=== PATIENT | male | born 1995 | race Caucasian/White ===

== ENCOUNTER 2019-09-21 13:19 | Emergency (ER) | payer MEDICAID ==
[~2019-09-21] VITALS: Ht 167.6 cm; Wt 77.3 kg
[2019-09-21 13:37] VITALS: BP 120/75
== END 2019-09-21 14:44 | disposition home or self-care (01) ==
LOC: EMS 13:22
DX: Z03.818 Encounter for observation for suspected exposure to other biological agents ruled out (principal); R05 Cough; R50.9 Fever, unspecified; J02.9 Acute pharyngitis, unspecified; R09.81 Nasal congestion
CPT/HCPCS: 99283; U0003

== ENCOUNTER 2023-11-20 01:31 | Emergency (ER) | payer MEDICAID, OTHER ==
[~2023-11-20] VITALS: Ht 167.6 cm; Wt 84.1 kg
[2023-11-20 02:35] LABS: BASOPHILS % (AUTO) 0.6 % (0.0-2.0); EOSINOPHILS % (AUTO) 2.2 % (1.0-6.0); HEMATOCRIT 44.2 % (41-53); HEMOGLOBIN 15.1 g/dL (13.5-17.5); LYMPHOCYTES # (AUTO) 1.4 K/uL (1.0-4.8); LYMPHOCYTES % (AUTO) 20.5 % (22.0-44.0); MEAN CORPUSCULAR HGB CONC 34.1 G/dL (31.0-37.0); MEAN CORPUSCULAR VOLUME 91 fL (80-100); MONOCYTES # (AUTO) 0.4 K/uL (0.1-1.0); MONOCYTES % (AUTO) 5.4 % (2.0-9.0); NEUTROPHILS % (AUTO) 71.3 % (40.0-70.0); PLATELET COUNT (AUTO) 286 K/uL (150-450); RED BLOOD CELL COUNT(AUTO) 4.87 MIL/uL (4.50-5.90); RED CELL DISTRIBUTION WIDTH 13.8 % (11.5-14.5)
[2023-11-20 02:43] LABS: ANION GAP 14 mmol/L (8-16); CALCIUM, TOTAL 8.7 mg/dL (8.8-10.5); CARBON DIOXIDE 24 mmol/L (22-29); CHLORIDE 101 mmol/L (98-107); CREATININE 0.85 mg/dL (0.60-1.30); GLOMERULAR FILTR. RATE CALC > 60 mL/min (>60); GLUCOSE,RANDOM 106 mg/dL (70-110); POTASSIUM 3.9 mmol/L (3.5-5.1); SODIUM SERUM 139 mmol/L (136-145); UREA NITROGEN, BLOOD 7 mg/dL (7-18)
[2023-11-20 02:54] LABS: ALCOHOL, BLOOD (SERUM) 224 mg/dL (0-10)
[2023-11-20 03:56] LABS: ALCOHOL, URINE DRUG SCREEN POSITIVE (NEGATIVE); AMPHET/METH SCREEN,URINE NEGATIVE (NEGATIVE); BARBITURATE SCREEN, URINE NEGATIVE (NEGATIVE); BENZODIAZEPINES SCREEN,URINE NEGATIVE (NEGATIVE); CANNABINOID SCREEN,URINE NEGATIVE (NEGATIVE); COCAINE SCREEN,URINE NEGATIVE (NEGATIVE); METHADONE SCREEN, URINE NEGATIVE (NEGATIVE); OPIATE SCREEN,URINE NEGATIVE (NEGATIVE); PHENCYCLIDINE SCREEN,URINE NEGATIVE (NEGATIVE)
[2023-11-20 04:07] LABS: PH,URINE DRUG SCREEN 5.5 (5.0-8.0)
[2023-11-20 08:28] VITALS: BP 116/70; PULSE 97; RESP 16; TEMP 98.1; O2SAT 99
== END 2023-11-20 10:02 ==
LOC: EMS 01:31
DX: F32.A Depression, unspecified (principal); F10.129 Alcohol abuse with intoxication, unspecified; Y90.9 Presence of alcohol in blood, level not specified
CPT/HCPCS: 99285; 80048; 85025; 36415; 80307; G0480

== ENCOUNTER 2023-12-01 02:11 | Inpatient (IN) | payer MEDICAID, OTHER ==
[~2023-12-01] VITALS: Ht 167.6 cm; Wt 83.9 kg
[2023-12-01 04:23] LABS: BASOPHILS % (AUTO) 1.1 % (0.0-2.0); EOSINOPHILS % (AUTO) 1.1 % (1.0-6.0); HEMATOCRIT 43.7 % (41-53); HEMOGLOBIN 14.5 g/dL (13.5-17.5); LYMPHOCYTES # (AUTO) 1.9 K/uL (1.0-4.8); LYMPHOCYTES % (AUTO) 27.3 % (22.0-44.0); MEAN CORPUSCULAR HEMOGLOBIN 29.9 pg (26.0-34.0); MEAN CORPUSCULAR HGB CONC 33.2 G/dL (31.0-37.0); MEAN CORPUSCULAR VOLUME 90 fL (80-100); MONOCYTES # (AUTO) 0.4 K/uL (0.1-1.0); MONOCYTES % (AUTO) 5.1 % (2.0-9.0); NEUTROPHILS # (AUTO) 4.6 K/uL (1.8-7.7); NEUTROPHILS % (AUTO) 65.4 % (40.0-70.0); PLATELET COUNT (AUTO) 248 K/uL (150-450); RED BLOOD CELL COUNT(AUTO) 4.86 MIL/uL (4.50-5.90); RED CELL DISTRIBUTION WIDTH 13.8 % (11.5-14.5)
[2023-12-01 04:27] LABS: ANION GAP 14 mmol/L (8-16); CALCIUM, TOTAL 8.2 mg/dL (8.8-10.5); CARBON DIOXIDE 23 mmol/L (22-29); CHLORIDE 102 mmol/L (98-107); CREATININE 0.74 mg/dL (0.60-1.30); GLOMERULAR FILTR. RATE CALC > 60 mL/min (>60); GLUCOSE,RANDOM 107 mg/dL (70-110); POTASSIUM 3.8 mmol/L (3.5-5.1); SODIUM SERUM 139 mmol/L (136-145); UREA NITROGEN, BLOOD 10 mg/dL (7-18)
[2023-12-01 04:34] LABS: ALCOHOL, BLOOD (SERUM) 211 mg/dL (0-10)
[2023-12-01 06:28] LABS: COVID AG,FIA SOURCE NASAL SWAB
[2023-12-01 06:32] LABS: PH,URINE DRUG SCREEN 5.5 (5.0-8.0)
[2023-12-01 06:39] LABS: ALCOHOL, URINE DRUG SCREEN POSITIVE (NEGATIVE); AMPHET/METH SCREEN,URINE NEGATIVE (NEGATIVE); BARBITURATE SCREEN, URINE NEGATIVE (NEGATIVE); BENZODIAZEPINES SCREEN,URINE NEGATIVE (NEGATIVE); CANNABINOID SCREEN,URINE NEGATIVE (NEGATIVE); COCAINE SCREEN,URINE NEGATIVE (NEGATIVE); METHADONE SCREEN, URINE NEGATIVE (NEGATIVE); OPIATE SCREEN,URINE NEGATIVE (NEGATIVE); PHENCYCLIDINE SCREEN,URINE NEGATIVE (NEGATIVE)
[2023-12-01 06:51] LABS: SARS-COV2 (COVID) ANTIGEN,FIA Negative (Negative)
[2023-12-01 11:41] VITALS: O2SAT 100
[2023-12-01] MEDS ORDERED: HALOPERIDOL 5 MG TABLET PO PRN (12:45)
[2023-12-01] MEDS ORDERED: ZOLPIDEM TARTRATE 10 MG TABLET PO PRN (12:45)
[2023-12-01] MEDS ORDERED: LORazepam 2 MG TABLET PO PRN (12:45)
[2023-12-01] MEDS ORDERED: DIAZEPAM 10 MG TABLET PO PRN (17:15)
[2023-12-01] MEDS ORDERED: QUEtiapine FUMARATE 100 MG TABLET PO PRN (17:15)
[2023-12-01] MEDS ORDERED: ACETAMINOPHEN 325 MG TABLET PO PRN (17:15)
[2023-12-01] MEDS ORDERED: MAGNESIUM HYDROXIDE SUSPENSION 30 ML UDCUP PO PRN (17:15)
[2023-12-01] MEDS ORDERED: HydrOXYzine PAMOATE 50 MG CAPSULE PO PRN (17:15)
[2023-12-01] MEDS ORDERED: GuaiFENesin/D-METHORPHAN [SUGAR-FREE] 200-20MG/10 ML SYRUP UDCUP PO PRN (17:15)
[2023-12-01] MEDS ORDERED: TUBERCULIN, PURIFIED PROTEIN DERIVATIVE 5 TU/0.1 ML SYRINGE ID ONE (17:15)
[2023-12-01] MEDS ORDERED: MAG HYDROX/ALUMINUM HYD/SIMETH ES 30 ML SUSPENSION UDCUP PO PRN (17:15)
[2023-12-01] MEDS ORDERED: LOPERAMIDE HCL 2 MG CAPSULE PO PRN (17:15)
[2023-12-01 17:37] VITALS: BP 143/80; PULSE 110; RESP 19; TEMP 98; O2SAT 97
[2023-12-01 18:18] VITALS: BP 119/79; PULSE 108; RESP 18; TEMP 97.6; O2SAT 97
[2023-12-01] MEDS: CYANOCOBALAMIN 1,000 MCG/ML VIAL IM ONE (18:24)
[2023-12-01 19:30] VITALS: BP 110/74; PULSE 103; RESP 18; TEMP 97.4; O2SAT 98
[2023-12-01] MEDS: GABAPENTIN 100 MG CAPSULE PO SCH (20:29)
[2023-12-01] MEDS: MIRTAZAPINE 15 MG TABLET PO SCH (20:30)
[2023-12-01] MEDS: MELATONIN 5 MG TABLET PO SCH (20:30)
[2023-12-01 20:57] VITALS: BP 133/82; PULSE 75; RESP 18; TEMP 97.7; O2SAT 99
[2023-12-01 21:14] VITALS: BP 116/72; PULSE 107; RESP 17; TEMP 98.2; O2SAT 98
[2023-12-02] VITALS (11 sets, daily range): BP systolic 103–127; BP diastolic 63–78; PULSE 67–107; RESP 17–18; TEMP 97–98; O2SAT 97–100
[2023-12-02] MEDS ORDERED: DIAZEPAM 10 MG TABLET PO PRN (07:00)
[2023-12-02] MEDS: GABAPENTIN 300 MG CAPSULE PO SCH (08:41)
[2023-12-02] MEDS: THIAMINE 100 MG TABLET PO SCH (08:41)
[2023-12-02] MEDS: NALTREXONE HCL 50 MG TABLET PO SCH (08:41)
[2023-12-02] MEDS: FOLIC ACID 1 MG TABLET PO SCH (08:41)
[2023-12-02] MEDS: DIAZEPAM 10 MG TABLET PO SCH (08:41)
[2023-12-02] MEDS: MULTIVITAMINS WITH MINERALS, THERAPEUTIC TABLET PO SCH (08:46)
[2023-12-02 09:00] LABS: HEMOGLOBIN A1C 5.4 % (3.8-5.6)
[2023-12-02 09:22] LABS: CHOL/HDL RATIO 3.8 (4.2-7.3); FREE T4 (FREE THYROXINE) 1.24 ng/dL (0.76-1.46); THYROID STIMULATING HORMONE 5.1 uIU/mL (0.36-3.74)
[2023-12-03 03:00] VITALS: BP 110/65; PULSE 72; RESP 17; TEMP 97.9
[2023-12-03] MEDS: LEVOTHYROXINE SODIUM 25 MCG TABLET PO SCH (06:33)
[2023-12-03 08:24] VITALS: BP 124/70; PULSE 86; RESP 18; TEMP 98.1; O2SAT 98
[2023-12-03] MEDS ORDERED: NALT50TA33 PO (12:37)
[2023-12-03] MEDS ORDERED: GABA-1181 PO (12:40)
[2023-12-03] MEDS ORDERED: MIRT-89 PO (12:49)
[2023-12-03] MEDS ORDERED: MELA5TAB12 PO (12:51)
[2023-12-03] MEDS ORDERED: LEVO25CA4 PO (13:14)
[2023-12-04] MEDS ORDERED: DIAZEPAM 5 MG TABLET PO PRN (07:00)
[2023-12-04] MEDS ORDERED: DIAZEPAM 5 MG TABLET PO SCH (09:00)
[2023-12-05] MEDS ORDERED: DIAZEPAM 5 MG TABLET PO PRN (07:00)
== END 2023-12-03 16:45 | disposition home or self-care (01) | DRG 751 ==
LOC: EMS 02:11 → B2S 16:53
PROVIDERS: ADMIT Psychiatry & Neurology Psychiatry; ATTEND Psychiatry & Neurology Psychiatry
PROC: GZHZZZZ Group Psychotherapy (ICD-10-PCS; principal; 2023-12-01)
PROC: GZ51ZZZ Individual Psychotherapy, Behavioral (ICD-10-PCS; 2023-12-01)
DX: F33.9 Major depressive disorder, recurrent, unspecified (principal); R45.851 Suicidal ideations; F41.9 Anxiety disorder, unspecified; G47.00 Insomnia, unspecified; K59.00 Constipation, unspecified; Y90.7 Blood alcohol level of 200-239 mg/100 ml; Z20.822 Contact with and (suspected) exposure to COVID-19; E03.9 Hypothyroidism, unspecified; F10.929 Alcohol use, unspecified with intoxication, unspecified; Z63.9 Problem related to primary support group, unspecified; Z65.3 Problems related to other legal circumstances; Z55.9 Problems related to education and literacy, unspecified; Z59.9 Problem related to housing and economic circumstances, unspecified
CPT/HCPCS: 80048; 80061; 80307; 83036; 84439; 84443; 85025; 86592; 99285; G0480; J3420